=== PATIENT | male | born 1935 | race Caucasian/White ===

== ENCOUNTER 2017-06-15 11:47 | Emergency (ER) | payer MEDICARE ==
[~2017-06-15] VITALS: Ht 190.5 cm; Wt 90.7 kg
[2017-06-15] MEDS ORDERED: OMEPRAZOLE MAGN20 MG PO (12:07)
[2017-06-15] MEDS ORDERED: NORVASC5 MG PO (12:07)
[2017-06-15] MEDS ORDERED: DULCOLAX5 MG PO (12:08)
[2017-06-15 12:46] LABS: INFLUENZA A ANTIGEN None Detected (None Detect); INFLUENZA B ANTIGEN None Detected (None Detect)
[2017-06-15] MEDS ORDERED: TESSALON PERLE100 MG PO (14:15)
[2017-06-15] MEDS ORDERED: PROAIR HFA8.5 GM INH (14:15)
[2017-06-15 14:32] VITALS: BP 145/66
== END 2017-06-15 14:33 | disposition home or self-care (01) ==
LOC: M.ERS 11:47
PROVIDERS: Emergency Medicine
DX: B34.9 Viral infection, unspecified (principal); I10 Essential (primary) hypertension; K21.9 Gastro-esophageal reflux disease without esophagitis; Z95.0 Presence of cardiac pacemaker